=== PATIENT | female | born 1945 | race Hispanic/Latino ===

== ENCOUNTER 2017-07-31 07:13 | Day surgery (SDC) | payer BC ==
[2017-07-29 09:06] VITALS: BMI 32.8
[2017-07-31] MEDS ORDERED: Propofol 10 mg/ml Inj (20 ML) ONE (07:49)
[2017-07-31] MEDS ORDERED: Benzocaine/Butamben/Tetracai 14-2-2% TOP Spray TOP ONE (07:52)
[2017-07-31] MEDS ORDERED: Etomidate 20 mg/10ml Inj IV ONE (08:01)
[2017-07-31] MEDS ORDERED: Phenylephrine 10 mg/ml Inj ONE (08:01)
[2017-07-31] MEDS ORDERED: Sodium Chloride 0.9% 1,000 ML IV SCH (08:30)
[2017-07-31 09:20] VITALS: BP 149/70; PULSE 60; RESP 18; TEMP 98.1; O2SAT 98
== END 2017-07-31 09:59 | disposition home or self-care (01) ==
LOC: ENDO 07:13
PROVIDERS: ATTEND Specialist
DX: K29.50 Unspecified chronic gastritis without bleeding (principal); K44.9 Diaphragmatic hernia without obstruction or gangrene; I25.10 Atherosclerotic heart disease of native coronary artery without angina pectoris; I10 Essential (primary) hypertension; M19.90 Unspecified osteoarthritis, unspecified site; D64.9 Anemia, unspecified; K21.9 Gastro-esophageal reflux disease without esophagitis; Z96.651 Presence of right artificial knee joint
CPT/HCPCS: 43239; 88305; 88342; J2001; J2370; J2704; J3010; J7040 ×2

== ENCOUNTER 2018-04-29 06:52 | Day surgery (SDC) | payer BC ==
[2018-04-27 16:42] VITALS: BMI 34.2
[2018-04-29 07:19] VITALS: RESP 16
[2018-04-29] MEDS ORDERED: Propofol 10 mg/ml Inj (20 ML) ONE ×2 (08:27→08:59)
[2018-04-29] MEDS ORDERED: Etomidate 20 mg/10ml Inj IV ONE (08:27)
[2018-04-29] MEDS ORDERED: Sodium Chloride 0.9% 1,000 ML IV SCH (08:45)
[2018-04-29 10:01] VITALS: BP 136/78; PULSE 65; TEMP 97.7; O2SAT 97
== END 2018-04-29 10:45 | disposition home or self-care (01) ==
LOC: ENDO 06:52
PROVIDERS: ATTEND Specialist
DX: Z12.11 Encounter for screening for malignant neoplasm of colon (principal); K63.5 Polyp of colon; K64.8 Other hemorrhoids; I25.10 Atherosclerotic heart disease of native coronary artery without angina pectoris; I10 Essential (primary) hypertension; E78.5 Hyperlipidemia, unspecified
CPT/HCPCS: 45385; 88305; J2001; J2704; J7030; J7040